=== PATIENT | female | born 1960 | race African-American/Black ===

== ENCOUNTER 2017-05-04 08:39 | Inpatient (IN) | payer OTHER, MEDICAID ==
[~2017-05-04] VITALS: Ht 162.6 cm; Wt 70.8 kg
[~2017-05-04 08:39] MED LIST: ACYCLOVIR 400400 MG PO; AEROCHAMBER MI1 EACH MC; AEROCHAMBER MI1 EACH PO; AMITRIPTYLINE H10 M1; AMLODIPINE; DIAZEPAM 5 MG5 M1 PO; FLEXERIL PO; GABAPENTIN 100100 MG PO; GLUCOPHAGE500 MG PO; HYDROCHLOROTH12.5 M1 PO; HYDROCHLOROTH12.5 MG PO; HYDROCODONE-AP1 EAC6 PO; KEFLEX500 MG PO; MEDROLDOSEPACK PO; NORVASC 5 MG TAB5 MG PO; OXYCODON-ACETA1 EAC1 PO; PERCOCET PO; PREDNISONE 10 M10 MG PO; PREDNISONE10 MG PO; PREDNISONE50 MG PO; PROAIR HFA8.5 GM IH; PROAIR HFA8.5 GM INH; PROAIR HFA8.5 GM PO; PROTONIX40 M1 PO; SPIRIVA18 MCG INH; SYMBICORT160 MCG/4. INH; ULTRAM 50MG TAB50 MG PO; ZPAK PO
[2017-05-04 08:49] VITALS: BP 154/89
[2017-05-04 09:28] LABS: ABSOLUTE BASOPHILS 0.1 thou/uL (0.0-0.2); ABSOLUTE EOSINOPHILS 0.2 thou/uL (0.0-0.7); ABSOLUTE LYMPHOCYTES 2.1 thou/uL (0.8-5.3); ABSOLUTE MONOCYTES 0.8 thou/uL (0.0-1.2); ABSOLUTE NEUTROPHILS 2.9 thou/uL (1.6-8.1); BASOPHILS 0.9 %; EOSINOPHILS 3.3 %; HEMATOCRIT 41.4 % (37.0-47.0); HEMOGLOBIN 14.1 gm/dL (12.0-15.0); LYMPHOCYTES 35.5 %; MCH 32.4 pg (26.0-34.0); MCHC 34.1 g/dL (28.0-37.0); MCV 95.1 fL (80.0-100.0); MONOCYTES 12.7 %; MPV 9.5 fl. (7.2-11.1); NUCLEATED RBCS 0 /100WBC; PLATELET COUNT* 252 thou/uL (150-400); POLYS 47.6 %; RBC 4.35 mil/uL (4.20-5.00); RDW-CV 14.2 % (10.5-14.5)
[2017-05-04 09:35] LABS: ANION GAP 9 mmol/L (7-16); APTT 28.2 Seconds (25.0-31.3); BUN 9 mg/dL (7-18); CHLORIDE 104 mmol/L (98-107); CO2 30 mmol/L (21-32); CREATININE 0.7 mg/dL (0.6-1.3); GLUCOSE 135 mg/dL (70-99); POTASSIUM 3.8 mmol/L (3.5-5.1); PROTIME 9.4 Seconds (9.20-11.50); SODIUM 143 mmol/L (136-145)
[2017-05-04 09:46] LABS: ALBUMIN 3.7 g/dL (3.4-5.0); ALKALINE PHOSPHATASE 111 U/L (46-116); LIPASE 56 U/L (73-393); MAGNESIUM 1.9 mg/dL (1.8-2.4); NT-PRO BRAIN NAT PEPTIDE 54 pg/mL (<300); SGOT 18 U/L (15-37); SGPT 31 U/L (30-65); TOTAL BILIRUBIN 0.2 mg/dL (<0.1-1.0); TOTAL PROTEIN 8.1 g/dL (6.4-8.2); TROPONIN-I LEVEL <0.06 ng/mL (<0.06)
[2017-05-04 09:49] LABS: INFLUENZA A ANTIGEN None Detected (None Detect); INFLUENZA B ANTIGEN None Detected (None Detect)
--- NOTE | 2017-05-04 11:10 | EKG ---
[place] [address] ELECTROCARDIOGRAM REPORT Name: MONIKANARENMARIMAR CHURCHILL Room: [facility]#: [id number] Admission: 05/04/17 Attend Phys: Discharge: Date of : 56 Report #: [id number] THIS REPORT FOR: //name// [facility] ED Test Date: 2017-05-04 Test Time: 09:09:42 Pat Name: NAREN FRANK Department: Room: Gender: F [employer] Plant Repairer: Benito HANEY : 1960 Requested By: Junaid Rogers Order Number: [id number] MD: Manuel Whitten Measurements Intervals [place] Rate: 103 P: 90 FL: 145 QRS: 73 QRSD: 80 T: -7 QT: 360 QTc: 471 Interpretive Statements Sinus tachycardia Right atrial enlargement Repol abnrm suggests ischemia, inferior leads Artifact in lead(s) I,II,aVR,aVL,aVF and baseline wander in lead(s) V4 Compared to ECG 04/07/2016 13:01:57 no change Electronically Signed On 05-04-2017 11:10:15 [employer] by Manuel Whitten [email or web address] <ELECTRONICALLY SIGNED> By: Manuel Whitten MD, [facility] 05/04/17 1110 [id number] Manuel Whitten MD, [facility] /EPI
[2017-05-04 14:56] VITALS: BP 126/71
[2017-05-04 16:00] VITALS: BP 137/66
--- NOTE | 2017-05-04 18:32 | NUR ---
RECEIVED PT FROM ER. PT A/O X'S 4. 3L NC. PT REPORTS SHE DOES NOT WEAR O2 AT HOME. DOES WEAR CPAP MACHINE. CPAP NOT IN HOSPITAL. ADMISSION ASSESSMENT COMPLETE.
[2017-05-04 20:00] VITALS: BP 166/76
[2017-05-04] MEDS ORDERED: ZOLOFT50 MG PO (21:11)
[2017-05-04] MEDS ORDERED: HYDROCODONE-AP1 EAC6 PO (21:12)
[2017-05-05] VITALS (8 sets, daily range): BP systolic 113–143; BP diastolic 56–85
--- NOTE | 2017-05-05 04:52 | NUR ---
ASSUMED CARE OF PT AT 1930, NURSING ASSESSMENT COMPLETED, PT VOICED NO CONCERNS THIS SHIFT, CONTINUES ON TELE MONITOR, TRACING SINUS TACHY THIS SHIFT, IVF INFUSING, PT DENIES PAIN, CALL LIHT WITHIN REACH.
[2017-05-05 05:54] LABS: HEMATOCRIT 38.6 % (37.0-47.0); HEMOGLOBIN 12.7 gm/dL (12.0-15.0); MCHC 32.8 g/dL (28.0-37.0); MCV 97.5 fL (80.0-100.0); MPV 9.7 fl. (7.2-11.1); RBC 3.96 mil/uL (4.20-5.00); RDW-CV 14.5 % (10.5-14.5); WBC 10.9 thou/uL (4.0-11.0)
[2017-05-05 05:59] LABS: CALCIUM 9.8 mg/dL (8.5-10.1); CREATININE 0.9 mg/dL (0.6-1.3)
[2017-05-05 06:00] LABS: POTASSIUM 4.9 mmol/L (3.5-5.1)
[2017-05-05] MEDS ORDERED: METFORMIN HCL500 MG PO (07:00)
--- NOTE | 2017-05-05 10:35 | NUR ---
CM ASSESSMENT: Pt is A&O. Resides at home with her 17 y/o son. Independent with ADLs, continues to work outside of the home. Pt stated that she has attempted to apply for disability before, but stated that it was denied. CM encouraged Pt to contact her employer to see if she has short/intermediate manager disability through her job and to apply for FMLA. No home o2. No hx of HH or SNF. Supportive family that is involved in POC. Following for dc needs.
--- NOTE | 2017-05-05 18:05 | NUR ---
PT A/O X'S 4. VSS. AFEBRILE. PT UP AD GREY. LUNG SOUNDS CLEAR. PT SOUNDS WHEEZY WHEN AMBULATING. THIS AM PT 88-89% ON 3L NC. PT TITRATED TO 4L THEN BACK TO 3L. PT AND FAMILY EDUCATED ON PLAN OF CARE. PT REQUESTED DIAZEPAM THIS AM. MEDICATION ADMIINSTERED PER JUN. INSULIN ADMINISTERED PER JUN.
--- NOTE | 2017-05-06 01:15 | NUR ---
RECEIVED REPORT AT 1915. PT VSS, VOICED NO CONCERNS AT START OF SHIFT. REPORT GIVEN TO SAMARA FISHER AT 2015 FOR PT TRANSFER TO ROOM 111. PT TRANSFERED DOWN VIA BED WITH O2 TANK.
--- NOTE | 2017-05-06 04:54 | NUR ---
ASSUMED CARE OF PATIENT AT APPROXIMATE1999. PATIENT WAS TRANSFERRED TO ORTHO/SURG FROM TELE AND ACCOMPANIED BY TELE NURSING STAFF. PATIENT ORIENTED TO FLOOR, CALL LIGHT, AND ROOM PROMPTLY. PATIENT IS ON 3L OF O2 PER NC AND INITIAL VITAL SIGNS SHOW PATIENT SATTING ABOVE 94%. PATIENT DENIES COUGH AND THERE IS NO COUGH PRESENT PER ASSESSMENT. PATIENT IS A/O X 4 AND ACTIVITY STATUS IS TO BE UP AD GREY. PATIENT DID C/O A HEADACHE DURING INITAL ASSESSMENT AND HYDROCODONE WAS GIVEN ORDERED PRN. PATIENT IS AN ACCU CHECK AC/HS AND IS CURRENTLY ON MODERATE SLIDING SCALE. NO OTHER COMPLAINTS/DISCOMFORT VERBALIZED BY PATIENT. HOURLY ROUNDS PERFORMED. NURSING TO FOLLOW-UP NECESSARY. ALL FALL PRECAUTIONS IN PLACE, INCLUDING CALL LIGHT WITHIN REACH. WILL CONTINUE TO MONITOR CLOSELY.
[2017-05-06 08:25] VITALS: BP 133/70
[2017-05-06 16:21] VITALS: BP 137/70
--- NOTE | 2017-05-06 17:06 | NUR ---
ASSUMED CARE OF PATIENT ATER MORNING REPORT. ALERT AND ORIENTED X4. ASSESSMENT COMPLETED AND CHARTED. VSS ON 3 LITERS 02. PATIENT HAS HAD NO NAUSEA OR PAIN THIS SHIFT. STEROIDS AND RT TREATMENTS ADMINISTERED ORDERED. PATIENT RESTED COMFROTABLY IN BED THROUGHOUT SHIFT. HOURLY ROUNDS HAVE BEEN MAINTAINED. CALL LIGHT IS WITHIN REACH. NURSING WILL CONTINUE TO MONITOR.
[2017-05-06 20:30] VITALS: BP 111/55
[2017-05-07 04:00] VITALS: BP 100/50
--- NOTE | 2017-05-07 06:29 | NUR ---
Alert and oriented x 4. She has O2 at 3L n/c and is walking around in her room independently. She did have pain med at HS for rt arm pain. Lungs have wheezes. She does have a loose cough. She has slept well. Vitals are stable.
[2017-05-07 07:45] VITALS: BP 124/56
--- NOTE | 2017-05-07 08:28 | CON ---
[address] [address] CONSULTATION Name: NAREN FRANK Room: [address] [place] .R.#: [id number] Admission: 05/04/17 Attend Phys: Carole Saucedo MD Discharge: Date of : 56 Report #: [id number] THIS REPORT FOR: //name// CC: Carole Chacon REASON FOR CONSULTATION: COPD exacerbation. HISTORY OF PRESENT ILLNESS: The patient is a 57-year-old female patient who was admitted to the hospital on 05/04/2017 with chief complaint of shortness of breath of 1-week duration that was associated with cough with occasional sputum production that is dark in color, also she had some nasal discharge. The patient reported that she has history of COPD and in the past she had been on Spiriva, Symbicort and rescue inhaler. She has been smoking for a long time on and off. She reported for the last 1 week her symptoms are getting worse and she was actually unable to move for long distances, only for a few feet. She spent the weekend in the bed with help with her family. She presented to the ER with the above-mentioned date and she was admitted for further evaluation and treatment. She still feels short of breath and wheezy. She denied any headache or blurring of vision. She denied any sick contact. She denied any chest pain. She denied any lower extremity edema. She denied any change in bowel habits. She denied any urinary symptoms. Rest of review of system was negative. REVIEW OF SYSTEMS: Twelve-system reviewed with the patient and negative other than as mentioned above. PAST MEDICAL HISTORY: COPD, not on any oxygen; history of brain aneurysm in 04/2012; history of diabetes mellitus and hypertension. PAST SURGICAL HISTORY: Includes hysterectomy. HOME MEDICATIONS: She is on amlodipine, diazepam. She is on rescue inhaler, Symbicort and Spiriva. ALLERGIES: No known drug allergies. FAMILY HISTORY: Reviewed with the patient, noncontributory. SOCIAL HISTORY: Does not drink alcohol excessively. She smoked for a long time on and off, the last time she smoked was 01/2017. PHYSICAL EXAMINATION: VITAL SIGNS: On examination, she is on 3 liters oxygen with saturation more than 90%, blood pressure 133/70, pulse rate of 100, temperature 36.5, breathing 18 times a minute. GENERAL: She speaks in full sentences, looks anxious. No respiratory distress. HEAD: Normocephalic, [place] [id number] CONSULTATION Name: NAREN FRANK Room: [address]#: [id number] Admission: 05/04/17 Attend Phys: Carole Saucedo MD Discharge: Date of : 56 Report #: [id number] EYES: Pupils are equal, reactive to light. Extraocular muscle movements intact. ORAL CAVITY: Moist mucous membrane, Mallampati of 2-3. NECK: Supple. No palpable lymph node, no palpable thyroid. Trachea is central. EARS: External ears look healthy and normal. CHEST: Diminished air movement bilaterally with prolonged expiratory phase and end expiratory wheezes. Inspection of the chest did not show deformities. HEART: S1, S2. No murmur, no gallop. ABDOMEN: Benign, soft, lax, nontender. No masses felt, positive bowel sounds. EXTREMITIES: Lower extremity: No edema. No calf tenderness. NEUROLOGIC: Moving all 4 extremities spontaneously. No focal weakness. Cranial nerves grossly normal. LYMPHATICS: No palpable lymph node. SKIN: Normal for age and race. MOOD AND AFFECT: Good insight and judgment, but she is clearly anxious. LABORATORY DATA: Her white blood count is 6, hemoglobin 14.1, platelet 252. Her creatinine is 0.9, potassium of 4.9, sodium 142. Her influenza A and B rapid screen is negative. Her chest x-ray upon presentation did not show acute pathology. IMPRESSION: 1. Acute hypoxemic respiratory failure. 2. Chronic obstructive pulmonary disease exacerbation. 3. History of alcohol abuse. PLAN: The patient with history of smoking on and off. She reported some history of asthma as a child, but she had more trouble in recent years, likely she has a combination of asthma and asthmatic bronchitis. At this point, she will be on IV steroids, antibiotics and scheduled nebulization treatment, wean her oxygen down slowly as tolerated. If she comes off oxygen, she would benefit from overnight oximetry. Of note, she had history of obstructive sleep apnea and she has a CPAP machine at home that recording to her she uses intermittently. We will do a chest x-ray in the morning. We will follow along with you. Thank you for the consult. <ELECTRONICALLY SIGNED> By: Washington De La Cruz MD 05/07/17 0828 1032 Arturo Crews MD /nt
[2017-05-07 16:04] VITALS: BP 131/67
--- NOTE | 2017-05-07 17:31 | NUR ---
ASSUMED CARE OF PATIENT AFTER MORNING REPORT. ALERT AND ORIENTED X4. ASSESSMENT COMPLETED AND CHARTED. VSS ON 3 LITERS 02. PATIENT HAS HAD NO COMPLAINTS OF PAIN OR NAUSEA THIS SHIFT. PATIENT COUGH SOUNDS MORE LOOSE TODAY BUT STILL NON PRODUCTIVE. BREATHING TREATMENTS, STEROIDS AND ATIBIOTICS ADMINISTERED ORDERED. HOURLY ROUNDS HAVE BEEN MAINTAINED. CALL LIGHT IS WITHIN REACH. NURSING WILL CONTINUE TO MONITOR.
[2017-05-07 20:00] VITALS: BP 159/75
[2017-05-08] VITALS: BP 132/63
--- NOTE | 2017-05-08 04:58 | NUR ---
Alert and oriented x 4. O2 at 3L n/c, lungs are wheezy and diminished. She has a loose cough. Heartrate is slightly tachy. She did request pain meds x 1 at bedtime for right rib pain and she has slept well. Up independently to the bathroom with O2 at 3L n/c but she does get short of air.
[2017-05-08 07:30] VITALS: BP 120/75
[2017-05-08] MEDS ORDERED: ALBUTEROL SULFAT2 MG PO (10:25)
[2017-05-08] MEDS ORDERED: ALBUTEROL2.5 MG/31 INH (10:25)
[2017-05-08] MEDS ORDERED: PREDNISONE 10 M10 MG PO (10:25)
[2017-05-08] MEDS ORDERED: LEVAQUIN 750 M750 MG PO (10:25)
[2017-05-08] MEDS ORDERED: BENZONATATE100 MG PO (10:26)
[2017-05-08 15:53] VITALS: BP 120/75
[2017-05-08 16:58] VITALS: BP 120/75
--- NOTE | 2017-05-08 17:22 | NUR ---
PATIENT LEFT UNIT AT 1630. ALERT AND ORIENTED X4. UP AD GREY IN ROOM WITH OXYGEN. PATIENT IS GOING HOME WITH 3L O2 DURING ACTIVITY. DENIES PAIN AND NAUSEA. IV DC'D. ALL PERSONAL ITEMS LEFT WITH PATIENT. DISCHARGE INSTRUCTIONS SENT WITH PATIENT. VSS ON 3L O2. HOURLY ROUNDS HAVE BEEN MAINTAINED THROUGHOUT SHIFT. LEFT WITH FRIEND VIA CAR.
== END 2017-05-08 16:30 | disposition home or self-care (01) | DRG 189 ==
LOC: M.ERS 08:39 → M.2W 11:40 → M.TBA-ER 11:40 → M.2W 15:07 → M.ORTHSURG 05-05 21:19
PROVIDERS: Emergency Medicine Emergency Medical Services; ADMIT Internal Medicine
DX: J96.01 Acute respiratory failure with hypoxia (principal); J44.1 Chronic obstructive pulmonary disease with (acute) exacerbation; R65.10 Systemic inflammatory response syndrome (SIRS) of non-infectious origin without acute organ dysfunction; E11.9 Type 2 diabetes mellitus without complications; I10 Essential (primary) hypertension; Z90.710 Acquired absence of both cervix and uterus; Z79.899 Other long term (current) drug therapy; Z87.891 Personal history of nicotine dependence